=== PATIENT | male | born 1935 | race Caucasian/White ===

== ENCOUNTER 2020-02-11 07:42 | Day surgery (SDC) | payer OTHER ==
[~2020-02-11] VITALS: Ht 165.1 cm; Wt 57.6 kg
[2020-02-11 10:21] VITALS: BP 138/71
[2020-02-11 15:01] VITALS: BP 112/58
== END 2020-02-11 14:45 | disposition home or self-care (01) ==
LOC: GI 07:42 → OR 13:00 → GI 13:00
PROVIDERS: ATTEND Internal Medicine Gastroenterology
DX: D64.9 Anemia, unspecified (principal); K57.30 Diverticulosis of large intestine without perforation or abscess without bleeding; K64.8 Other hemorrhoids; K29.50 Unspecified chronic gastritis without bleeding; I10 Essential (primary) hypertension; E11.9 Type 2 diabetes mellitus without complications; Z79.82 Long term (current) use of aspirin; Z79.899 Other long term (current) drug therapy
CPT/HCPCS: 43235; 45378; J1200; J1610; J2250; J2310; J3010; J3490